=== PATIENT | female | born 1995 | race Caucasian/White ===

== ENCOUNTER → 2022-12-21 13:33 | Outpatient (CLI) | payer MEDICAID, SELFPAY ==
[2022-12-21 15:40] LABS: HCG,Quantitative 11184 mIU/ml (0-5.42)
== END ==
PROVIDERS: PCP Emergency Medicine; Visit Provider Obstetrics & Gynecology
DX: N92.6 Irregular menstruation, unspecified (principal); Z32.00 Encounter for pregnancy test, result unknown
CPT/HCPCS: 36415; 84144; 84702

== ENCOUNTER → 2023-01-10 11:46 | Outpatient (CLI) | payer MEDICAID, SELFPAY ==
[2023-01-10 12:24] LABS: Basophils # 0.1 K/mm3 (0-0.2); Basophils % 0.8 % (0.1-2.0); Eosinophils # 0.4 K/mm3 (0.0-0.4); Eosinophils % 3.5 % (0.1-12.0); Hematocrit 40.6 % (37.0-47.0); Hemoglobin 13.9 g/dL (12.2-16.2); Lymphocytes # 2.3 K/mm3 (0.7-4.5); Lymphocytes % 20.1 % (10-50); Mean Corpuscular HGB Conc 34.2 g/dL (31.8-35.4); Mean Corpuscular Hemoglobin 32.4 pg (27.0-31.2); Mean Corpuscular Volume 94.7 fl (81-99); Mean Platelet Volume 8.3 fl (7.4-10.4); Monocytes # 0.6 K/mm3 (0.1-1.0); Monocytes % 5.3 % (1.7-9.3); Neutrophils % 70.3 % (37.0-80.0); Platelet Count 341 K/mm3 (142-424); Red Blood Count 4.28 M/mm3 (4.20-5.40); Red Cell Distribution Width 12.8 % (11.5-17.5); White Blood Count 11.4 K/mm3 (4.8-10.8)
[2023-01-11 09:01] LABS: Progesterone 10.8 ng/mL (.); Rubella Antibodies, IgG 1.64 index (Immune >0.99)
[2023-01-11 15:29] LABS: Rapid Plasma Reagin Ab Titer Non Reactive (NonRea<1:1)
[2023-01-15 02:22] LABS: HIV Screen 4th Generation wRfx Non Reactive; Hepatitis B Surface Antigen Negative; Hepatitis C Antibody Non Reactive
== END ==
PROVIDERS: PCP Emergency Medicine; Visit Provider Obstetrics & Gynecology
DX: Z34.90 Encounter for supervision of normal pregnancy, unspecified, unspecified trimester (principal)
CPT/HCPCS: 36415; 84144; 85025; 86593; 86703; 86762; 86850; 87086; 87340; 87380; G0432

== ENCOUNTER → 2023-06-08 13:51 | Outpatient (CLI) | payer MEDICAID, SELFPAY ==
--- NOTE | 2023-06-08 13:54 | US_ITS ---
PROCEDURE: US OB FOLLOW UP CLINICAL INDICATION: sga/ with TIANA COMPARISON: No exams were available for comparison FINDINGS: Transabdominal sonographic images of the uterus were obtained. The following parameters are obtained: From her last established due date she is 29weeks 6days Viable fetus in the cephalic presentation with a posterior placenta grade 1. heart rate: 149bpm bpm. BPD: 30weeks 4days OFD: 30weeks 1day HC: 30weeks 2days AC: 29weeks 3days FL: 30weeks 3days HC/AC: 1.1 Cephalic index: 0.77 FL/BPD: 0.77 FL/AC: 0.23 36 percentile Amniotic fluid index: 12.27cm No obvious anomalies evident. profile seen, nasion, stomach, bladder, kidneys, appear normal. Nose and lips appear normal. Three-vessel cord seen. IMPRESSION: 1. Viable fetus in the cephalic presentation with a posterior placenta grade 1. 2. The fluid is within normal limits with an amniotic fluid index of 12.3 cm. 3. There has been good interval growth and the fetus is 36 percentile. Dictated by: Marcelo Trejo MD 06/09/2023 08:46 Marcelo Trejo MD in OV 06/09/2023 08:46
== END ==
PROVIDERS: PCP Emergency Medicine; Visit Provider Obstetrics & Gynecology
DX: O28.8 Other abnormal findings on antenatal screening of mother (principal); O36.5920 Maternal care for other known or suspected poor fetal growth, second trimester, not applicable or unspecified; Z3A.29 29 weeks gestation of pregnancy
CPT/HCPCS: 76816

== ENCOUNTER → 2023-06-09 07:32 | Outpatient (CLI) | payer MEDICAID, SELFPAY ==
[2023-06-09 07:47] LABS: Basophils # 0.1 K/mm3 (0-0.2); Basophils % 0.3 % (0.1-2.0); Eosinophils # 0.6 K/mm3 (0.0-0.4); Eosinophils % 2.9 % (0.1-12.0); Hematocrit 37.8 % (37.0-47.0); Hemoglobin 12.3 g/dL (12.2-16.2); Lymphocytes # 3.9 K/mm3 (0.7-4.5); Lymphocytes % 19.9 % (10-50); Mean Corpuscular HGB Conc 32.4 g/dL (31.8-35.4); Mean Corpuscular Hemoglobin 32.6 pg (27.0-31.2); Mean Corpuscular Volume 100.5 fl (81-99); Mean Platelet Volume 7.7 fl (7.4-10.4); Monocytes % 4.9 % (1.7-9.3); Neutrophils # 14.1 K/mm3 (1.8-7.8); Neutrophils % 71.9 % (37.0-80.0); Platelet Count 295 K/mm3 (142-424); Red Blood Count 3.76 M/mm3 (4.20-5.40); Red Cell Distribution Width 13.5 % (11.5-17.5); White Blood Count 19.5 K/mm3 (4.8-10.8)
[2023-06-09 07:50] LABS: MANUAL DIFFERENTIAL MANUAL DIFFERENTIAL (MANUAL DIFF)
[2023-06-09 08:08] LABS: Glucose,Fasting 84 mg/dl (74-100)
[2023-06-09 08:13] LABS: Lymphocytes % 19 % (10-50); Monocytes % 5 % (2-9); Neutrophils % 76 % (42-76); Platelet Estimate Normal; RBC Morphology Normal; Total Cells Counted 100
[2023-06-09 09:13] LABS: Glucose 1 Hour 134 mg/dL (74-100)
== END ==
PROVIDERS: Obstetrics & Gynecology; PCP Emergency Medicine; Visit Provider Obstetrics & Gynecology
DX: Z34.93 Encounter for supervision of normal pregnancy, unspecified, third trimester (principal); Z3A.29 29 weeks gestation of pregnancy
CPT/HCPCS: 36415; 82951; 85007; 85025

== ENCOUNTER → 2023-07-22 16:36 | Outpatient (CLI) | payer MEDICAID, SELFPAY | PROVIDERS: Visit Provider Obstetrics & Gynecology | DX: Z34.93 Encounter for supervision of normal pregnancy, unspecified, third trimester (principal); Z3A.36 36 weeks gestation of pregnancy | CPT/HCPCS: 86403 ==

== ENCOUNTER 2023-08-11 04:57 | Inpatient (IN) | payer MEDICAID, SELFPAY ==
[2023-08-11] VITALS (13 sets, daily range): BP systolic 114–142; BP diastolic 58–81; PULSE 71–117; RESP 16–24; TEMP 36.3–37.1; O2SAT 96–100; BMI 40.9
[2023-08-11 06:02] LABS: Microscopic, Urine URINE MICROSCOPIC (MICROSCOPIC)
[2023-08-11 06:07] LABS: Appearance,Urine CLEAR (Clear); Bilirubin,Urine Negative (Negative); Blood, Urine Negative (Negative); Color,Urine YELLOW (Yellow); Glucose,Urine (UA) Negative (Negative); Ketones,Urine Negative (Negative); Leukocyte Esterase,Urine 2+ (Negative); Nitrate,Urine Negative (Negative); PH,Urine 6.5 (5.0-8.5); Protein,Urine Negative (Negative); Urobilinogen,Urine 0.2 EU/dl (0.2)
[2023-08-11 06:11] LABS: Basophils # 0.1 K/mm3 (0-0.2); Red Cell Distribution Width 13.7 % (11.5-17.5)
[2023-08-11 06:17] LABS: Basophils % 0.4 % (0.1-2.0); Eosinophils # 0.6 K/mm3 (0.0-0.4); Eosinophils % 2.7 % (0.1-12.0); Hematocrit 37.8 % (37.0-47.0); Hemoglobin 12.2 g/dL (12.2-16.2); Lymphocytes # 4.1 K/mm3 (0.7-4.5); Lymphocytes % 18.6 % (10-50); Mean Corpuscular HGB Conc 32.4 g/dL (31.8-35.4); Mean Corpuscular Hemoglobin 33.2 pg (27.0-31.2); Mean Corpuscular Volume 102.8 fl (81-99); Mean Platelet Volume 8.8 fl (7.4-10.4); Monocytes # 1.3 K/mm3 (0.1-1.0); Monocytes % 5.8 % (1.7-9.3); Neutrophils # 15.8 K/mm3 (1.8-7.8); Neutrophils % 72.4 % (37.0-80.0); Platelet Count 391 K/mm3 (142-424); Red Blood Count 3.68 M/mm3 (4.20-5.40)
[2023-08-11 06:23] LABS: Barbiturates Screen,Urine Negative ng/ml (<200); Squamous Epithelial Cell,Urine TNTC #/hpf (0-5); Yeast,Urine 1+ /lpf
[2023-08-11 06:24] LABS: Chloride 108 mmol/L (98-107); Potassium 4.1 mmoL/L (3.5-5.1); Sodium 136 mmol/L (136-145)
[2023-08-11 06:24] LABS: Amphetamine/Metha Screen,Urine Negative ng/ml (<1000); Benzodiazepines Screen,Urine Negative ng/ml (<200)
[2023-08-11 06:25] LABS: Cocaine Screen,Urine Negative ng/ml (<300)
[2023-08-11 06:26] LABS: Blood Urea Nitrogen 7 mg/dl (7-17); Creatinine Clearance Estimated 298 mL/min (50-200); Estimated Glomerular Filt Rate 148 ml/min (>60); GFR (African American) 179 ML/MIN (>60)
[2023-08-11 06:26] LABS: Cannabinoid Screen,Urine Negative ng/ml (<50); Methadone Screen,Urine Negative ng/ml (<300)
[2023-08-11 06:27] LABS: Alanine Aminotransferase 28 U/L (12-78); Albumin Level 3.6 g/dl (3.5-5.0); Albumin/Globulin Ratio 1.1 (1.1-1.8); Alkaline Phosphatase 107 U/L (38-126); Anion Gap 14.1 mEq/L (5-15); Aspartate Amino Transferase 29 U/L (14-36); Calcium 9.1 mg/dl (8.4-10.2); Carbon Dioxide 18 mmol/L (22.0-30.0); Globulin 3.2 g/dL (1.3-3.2); Glucose 92 mg/dl (74-100); Total Protein,Serum 6.8 g/dl (6.3-8.2)
[2023-08-11 06:27] LABS: Opiate Screen,Urine Negative ng/ml (<300)
[2023-08-11 06:28] LABS: Phencyclidine Screen,Urine Negative ng/ml (<25)
[2023-08-11 06:28] LABS: MANUAL DIFFERENTIAL MANUAL DIFFERENTIAL (MANUAL DIFF)
[2023-08-11 06:30] LABS: White Blood Count 21.7 K/mm3 (4.8-10.8)
[2023-08-11 06:40] LABS: Bilirubin,Total < 0.1 mg/dl (0.2-1.3)
--- NOTE | 2023-08-11 07:14 | EXP.OB.APHP ---
OB - H&P: HPI Antepartum History of Present Illness Chief complaint: Scheduled repeat History of present illness: Ms Bee Moser is a 28 yo at 39w0d who presents to [facility] for scheduled repeat . History of x 1. She has history of Anti-phospholipid antibody syndrome and Factor V Leiden. She has been using Lovenox 40 mg daily. Her last dose was 08/09/23. She has had good care. History of Present Criteria for establishing EDC:: LMP confirmed by 1st trimester US care: good care Ultrasounds: normal mid trimester US Obstetrical complications: previous Medical complications: other (Anti-phospholipid antibody syndrome, Factor V Leiden) Labs Blood type: A (+) positive Rubella: immune RPR/VDRL: nonreactive HBsAG: negative PFSH [facility] Disclaimer: The information contained in this section may have been updated after the patient was seen, as this information can be updated by other users. Medical History (Updated 08/11/23 @ 07:28 by Lucinda Sebastian DO) 39 weeks gestation of Anti-phospholipid syndrome Factor V deficiency History of hemorrhage, currently Surgical History History of delivery Family History Other No significant family history Social History Smoking Status: Current every day smoker alcohol intake: never current occupational status: employed Travel in the last 8 weeks: None Review of Systems Review of Systems Review of systems:: pertinent systems reviewed and negative unless documented below Meds Home Medications and Allergies Home Medications Medication Instructions Recorded Confirmed Type aspirin 81 mg tablet,delayed 81 mg PO DAILY #30 tabs 01/10/23 08/05/23 Rx release enoxaparin 40 mg/0.4 mL 40 mg (0.4 mL) SQ DAILY #12 mL 01/10/23 08/05/23 Rx subcutaneous syringe (Lovenox) prenat.vits,nichole,nkn-cero-hrjyj 1 tab PO DAILY 01/10/23 08/05/23 History New Prescriptions to Start Prescriptions: Allergies Allergy/AdvReac Type Severity Reaction Status Date / Time No Known Allergies Allergy Verified 08/05/23 09:23 OB - H&P: Exam Physical Exam Vital signs: Temp Pulse Resp BP Pulse Ox O2 Del Method 98.8 F 117 H 20 142/81 H 97 Room Air 08/11/23 06:06 08/11/23 06:06 08/11/23 06:06 08/11/23 06:06 08/11/23 06:06 08/11/23 06:06 Constitutional no acute distress and cooperative Routine HEENT Exam Head: Present normocephalic and atraumatic Eye: Absent conjunctivae pink ENT: Present mucous membranes moist and dentition normal Routine Neck Exam Present full ROM Routine Respiratory Exam Present CTA bilaterally and normal respiratory effort Routine Cardiovascular Exam Present RRR Routine Abdominal Exam Present soft (Gravid); Absent tenderness Routine Rectal Exam Patient deferred: visual exam Routine Exam Patient deferred: external exam Routine Extremities Exam Present full ROM; Absent edema or calf tenderness Routine Neurological Exam Present alert, oriented X3 and moving all extremities Routine Psychiatric Exam Present normal affect and cooperative OB - Results Labs Labs: Short CBC 08/11/23 Range/Units 05:30 WBC 21.7 H* (4.8-10.8) K/mm3 Hgb 12.2 (12.2-16.2) g/dL Hct 37.8 (37.0-47.0) % Plt Count 391 (142-424) K/mm3 BMP 08/11/23 05:30 Sodium 136 Potassium 4.1 Chloride 108 H Carbon Dioxide 18 L BUN 7 Creatinine 0.50 L Glucose 92 Calcium 9.1 Liver Function 08/11/23 Range/Units 05:30 Total Bilirubin < 0.1 L (0.2-1.3) mg/dl AST 29 (14-36) U/L ALT 28 (12-78) U/L Alkaline Phosphatase 107 (38-126) U/L Albumin 3.6 (3.5-5.0) g/dl Urine 08/11/23 Range/Units 05:09 Urine Color Yellow (Yellow) Urine Appearance
[2023-08-11 07:46] LABS: Lymphocytes % 22 % (10-50); Monocytes % 8 % (2-9); Neutrophils % 70 % (42-76); Platelet Estimate Normal; RBC Morphology Normal; Total Cells Counted 100
--- NOTE | 2023-08-11 08:32 | P.CONPHA_ITS ---
Pharmacy Intervention Comments: MEDICATION RECONCILIATION COMPLETED ON PATIENT USING EXTERNAL FILL HISTORY FROM PHARMACY AND LIST FROM [facility]. -CHAKA GOMEZD
--- NOTE | 2023-08-11 09:02 | EXP.OP.NOTE ---
Date of procedure: 08/11/23 Pre-op Diagnosis:: 1. IUP at 39w0d 2. History of x 1 3. Tobacco use 4. Maternal obesity 5. Factor V Leiden 6. Antiphospholipid antibody syndrome Post-op Diagnosis:: 1. IUP at 39w0d 2. History of x 1 3. Tobacco use 4. Maternal obesity 5. Factor V Leiden 6. Antiphospholipid antibody syndrome Procedure performed:: Repeat Low Transverse Section Surgeon:: Lucinda Sebastian DO Size Changer(s):: Dayami Garcia DO DNA ANALYST:: Other (Saldaris, DNA ANALYST) Anesthesia: spinal Estimated blood loss (mL): 500 Clinical Note:: Ms Bee Moser is a 28 yo at 39w0d who presents to [facility] for scheduled repeat . History of x 1. She has history of Anti-phospholipid antibody syndrome and Factor V Leiden. She has been using Lovenox 40 mg daily. Her last dose was 08/09/23. She has had good care. Operative findings:: 1. Live female baby weighing 8 lb 8 oz, APGARs 9, 9 2. Normal appearing uterus, bilateral fallopian tubes and ovaries Operative note:: The risks, benefits and alternatives of the procedure were reviewed with the patient. Informed consent was obtained. Patient was taken to the operating room where spinal anesthesia was placed. The patient received 2 grams of Ancef preoperatively. Patient was placed in dorsal supine position with a leftward tilt. SCDs in place. Marquez catheter had been placed and was draining clear urine prior to the start of the procedure. heart tones were obtained. Patient was then prepped and draped in normal sterile fashion. Allis clamp test was performed to ensure adequate anesthesia. A Pfannenstiel skin incision was made 2 cm above pubic symphysis, above prior Pfannenstiel scar. This was carried through to underlying layer of fascia. Fascia was incised in midline, extended laterally with Carrizales scissors. Superior aspect of fascial incision was grasped with two Zev clamps, elevated up, and rectus muscle dissected off bluntly and sharply with Carrizales scissors. Inferior aspect of fascial incision was grasped with two Zev clamps, elevated up, and rectus muscle dissected off bluntly and sharply with Carrizales scissors.The retcus muscle was then in the midline and the peritoneum was entered bluntly with a digit. Peritoneal incision was then extended superiorly and inferiorly with good visualization of the bladder. Lucius retractor was inserted. The lower uterine segment was incised in a transverse fashion. Clear amniotic fluid was noted. Head was delivered without difficulty. Remainder of body was delivered without difficulty. Mouth and nares were bulb suctioned. Spontaneous cry was noted. Delayed cord clamping was performed for 60 seconds. The umbilical cord was clamped and cut. The infant was handed to awaiting pediatric staff in stable condition. Dr. Edward was present. Apgars were 9(1 min), 9(5 min). Cord blood was obtained. Gentle traction on the umbilical cord and uterine fundal massage delivered the placenta. Placenta was intact. Placental calcifications notd. Placenta will be sent to pathology for review. Uterus was cleared of all clots and debris with a moist laparotomy sponge. Corners of the uterine incision were grasped with Allis clamps. The uterine incision was reapproximated with # 1 Vicryl suture in a running, locked stitch. Second layer of the same stitch was used to imbricate the incision. Vesicouterine peritoneum was reapproximated in a running locked stitch with 0-Vicryl suture. Hemostasis was noted. Posterior cul-de-sac was cleaned with moist laparotomy sponge. Gutters cleared of all clots and debris with a moist laparotomy sponge. Reinspection of the lower uterine segment demonstrated small amount of oozing. Puma was applied over uterine incision. Hemostasis was noted. At this point all instruments and sponges were removed from the pelvis.? The peritoneum was grasped with Sherrell clamps x 3. The peritoneum was reapproximated with 0 Vicryl
--- NOTE | 2023-08-11 10:08 | EXP.ANES.CKL ---
[facility] Disclaimer: The information contained in this section may have been updated after the patient was seen, as this information can be updated by other users. Medical History (Updated 08/11/23 @ 07:28 by Lucinda Sebastian DO) 39 weeks gestation of Anti-phospholipid syndrome Factor V deficiency History of hemorrhage, currently Surgical History History of delivery Family History Other No significant family history Social History Smoking Status: Current every day smoker alcohol intake: never substance use type: denies use and other current occupational status: employed Travel in the last 8 weeks: None [facility] Anesthesia Checklist Patient Identification Patient Identification: Arm Band, Family and Verbal (Name & ) Structural Data Admitted From: Inpatient Planned Operative Procedure/s: Repeat C-sxn Consent for Planned Operative Procedure(s) Verified: Yes Verified Documents: Surgical Consent and History and Physical NPO Status Verified Time NPO: 00:00 Chart Verification Results Verified: CBC Additional verifications Patient : Yes Anesthesia Reactions: No Hx Blood Transfusions: Yes Blood Transfusion Reaction: No Cephalosporin Allergy: No Cardiovascular Assessment Heart Sounds: S1 & S2 Pulse Rhythm: Irregular Peripheral Edema: Yes Airway Assessment Mallampati Score:: Class II C-Spine Mobility Assessed: Yes TMJ Mobility Assessed: Yes Dentition: Good Dentition Neurological Assessment Level of Consciousness: Awake, Alert and Appropriate Hx Seizures: No Numbness or tingling in extremities: No Anesthesia Plan Anesthesia Risk discussed: Yes Anesthesia Plan: Verified ASA Class: II Anesthesia Type: Spinal
--- NOTE | 2023-08-11 10:11 | P.PNANES_ITS ---
[facility] Anesthesia Record Part I Anesthesia Record I Intake, IV Amount: 1,300 Hydration: Adequate Estimated blood loss (mL): 550 Urine output (mL): 300 Blood Products used (#): none Blood Pressure: 120/74 SaO2: 98 Pulse Rate: 80 Airway Patency: Patent Respiratory Rate: 24 Temperature: 97.3 F Patient is:: Awake Stable to PACU at:: 09:08
--- NOTE | 2023-08-11 13:02 | SUR.OPER ---
0757- Time of of viable infant.
--- NOTE | 2023-08-11 13:21 | P.PNANES_ITS ---
[facility] Anesthesia Record Part II Anesthesia Record Part II Discharge Time: 09:33 Destination: Obstetric PACU nurse assessment reviewed?: Yes Patient Condition:: Good Anesthesia Complications:: None Swallowing reflex intact?: Yes Airway Patency: Patent Cyanosis?: No Blood Pressure: 128/65 SaO2: 98 Respiratory Rate: 18 Pulse Rate: 71 Temperature: 97.3 F Mental Status: Alert & Oriented Pain level:: 0 Nausea and/or vomitting:: None Intake, IV Amount: 0 Hydration: Adequate
[2023-08-11 13:49] LABS: Microscopic,Cath URINE MICROSCOPIC (MICROSCOPIC)
[2023-08-11 14:17] LABS: Appearance,Urine/Cath CLEAR (Clear); Bilirubin,Cath Negative (Negative); Blood, Urine/Cath Negative (Negative); Color,Urine/Cath YELLOW (Yellow); Glucose,Urine/Cath (UA) Negative (Negative); Ketones,Urine/Cath Negative (Negative); Leukocyte Esterase,Cath Negative (Negative); Nitrate,Cath Negative (Negative); Protein,Urine/Cath Negative (Negative); Specific Gravity, Urine/Cath 1.015 (1.005-1.030); Urobilinogen,Cath 0.2 EU/dl (0.2)
[2023-08-11 16:49] LABS: Squamous Epithelial Ur./Cath Occasional #/hpf (0-5)
[2023-08-12 06:03] LABS: Basophils # 0.1 K/mm3 (0-0.2); Basophils % 0.3 % (0.1-2.0); Eosinophils # 0.5 K/mm3 (0.0-0.4); Eosinophils % 2.2 % (0.1-12.0); Hematocrit 34.9 % (37.0-47.0); Hemoglobin 11.5 g/dL (12.2-16.2); Lymphocytes # 2.5 K/mm3 (0.7-4.5); Lymphocytes % 10.8 % (10-50); Mean Corpuscular HGB Conc 32.9 g/dL (31.8-35.4); Mean Corpuscular Hemoglobin 33.5 pg (27.0-31.2); Mean Corpuscular Volume 101.8 fl (81-99); Mean Platelet Volume 9.1 fl (7.4-10.4); Monocytes # 1.5 K/mm3 (0.1-1.0); Monocytes % 6.4 % (1.7-9.3); Neutrophils # 18.8 K/mm3 (1.8-7.8); Neutrophils % 80.3 % (37.0-80.0); Platelet Count 320 K/mm3 (142-424); Red Blood Count 3.43 M/mm3 (4.20-5.40); Red Cell Distribution Width 13.6 % (11.5-17.5); White Blood Count 23.4 K/mm3 (4.8-10.8)
[2023-08-12 06:07] LABS: MANUAL DIFFERENTIAL MANUAL DIFFERENTIAL (MANUAL DIFF)
[2023-08-12 07:45] VITALS: BP 140/95; PULSE 105; RESP 18; TEMP 37; O2SAT 97
[2023-08-12 07:55] LABS: Eosinophils % 1 % (0-3); Lymphocytes % 9 % (10-50); Monocytes % 8 % (2-9); Neutrophils % 82 % (42-76); Total Cells Counted 100
[2023-08-12 07:56] LABS: Macrocytosis 1+; Platelet Estimate Normal
[2023-08-12 11:35] VITALS: BP 123/79; PULSE 95; RESP 16; TEMP 37.1; O2SAT 97
--- NOTE | 2023-08-12 14:46 | EXP.DC.SUM ---
General Admission date:: 08/11/23 Discharge date: 08/12/23 HPI HPI HPI: POD # 1 s /p RLTCS Feeling well. Pain controlled. Breast feeding. Lochia is appropriate. Voiding without difficulty and passing flatus. Tolerating regular diet. Denies fever/chills, chest pain and shortness of breath. No headaches, vision changes, lightheadedness/dizziness. Ambulating well ad traci. Hospital Course Hospital Course Hospital Course: Ms Bee Moser is a 28 yo at 39w0d who presents to [facility] for scheduled repeat . History of x 1. She has history of Anti-phospholipid antibody syndrome and Factor V Leiden. She has been using Lovenox 40 mg daily. Her last dose was 08/09/23. She has had good care. She underwent repeat 08/11/23. She delivered a live female baby, Ember, weighing 8 lb 8 oz. APGARs 9, 9. EBL 500 mL. She did well postoperatively. Pain controlled. Breast feeding. Lochia is appropriate. Voiding without difficulty and passing flatus. Tolerating regular diet. Vital signs stable, afebrile. Heart regular rate and rhythm. Lungs clear to auscultation. Abdomen soft, nontender. Trace lower extremity edema. No calf tenderness to palpation. Normal hospital course. She was discharged home on POD # 1 feeling well with instructions to follow-up in the office in 2 weeks. Exam Data for Last 24 hours Vital signs and Labs for Last 24 Hours: Temp Pulse Resp BP Pulse Ox O2 Del Method 98.8 F 95 H 16 123/79 97 Room Air 08/12/23 11:35 08/12/23 11:35 08/12/23 11:35 08/12/23 11:35 08/12/23 11:35 08/12/23 11:35 Laboratory Results - last 24 hr 08/11/23 07:38: Urine RBC None, Urine WBC None, Ur Squamous Epith Cells Occasional, Urine Bacteria None 08/12/23 05:30: WBC 23.4 H*, RBC 3.43 L, Hgb 11.5 L, Hct 34.9 L, MCV 101.8 H, MCH 33.5 H, MCHC 32.9, RDW 13.6, Plt Count 320, MPV 9.1, Neut % (Auto) 80.3 H, Lymph % (Auto) 10.8, Norton % (Auto) 6.4, Eos % (Auto) 2.2, Baso % (Auto) 0.3, Neut # (Auto) 18.8 H, Lymph # (Auto) 2.5, Norton # (Auto) 1.5 H, Eos # (Auto) 0.5 H, Baso # (Auto) 0.1, Total Counted 100, Neutrophils % (Manual) 82 H, Lymphocytes % (Manual) 9 L, Monocytes % (Manual) 8, Eosinophils % (Manual) 1, Platelet Estimate Normal, Macrocytosis 1+ I & O for Last 24 hours: Intake & Output 08/09/23 08/10/23 08/11/23 08/12/23 23:59 23:59 23:59 23:59 Intake Total 1300 / 1300 Balance 1300 / 1300 Weight 246 lb Constitutional Constitutional: no acute distress and cooperative *Routine HEENT Exam Head: Present normocephalic and atraumatic Eye: Absent conjunctivae pink ENT: Present mucous membranes moist *Routine Neck Exam Neck: Present full ROM *Routine Respiratory Exam Respiratory: Present CTA bilaterally and normal respiratory effort *Routine Cardiovascular Exam Cardiovascular: Present RRR *Routine Abdominal Exam Abdominal: Present soft and normoactive bowel sounds; Absent tenderness or distended Comments: Uterine fundus firm and below umbilicus; pfannenstiel incision clean/dry/intact with steri strips *Routine Rectal Exam Patient deferred: visual exam *Routine Exam Patient deferred: external exam *Routine Extremities Exam Extremities: Present edema (trace lower extremity edema) and full ROM; Absent calf tenderness *Routine Neurological Exam Neurological: Present alert, oriented X3 and moving all extremities Routine Psychiatric Exam Psychiatric: Present normal affect and cooperative Results Data Completed and Pending Labs on day of discharge: Labs from last 24 hours 08/12/23 08/11/23 05:30 07:38 WBC 23.4 H* RBC 3.43 L Hgb 11.5 L Hct 34.9 L MCV 101.8 H MCH 33.5 H MCHC 32.9 RDW 13.6 Plt Count 320 MPV 9.1 Neut % (Auto) 80.3 H Lymph % (Auto) 10.8 Norton % (Auto) 6.4 Eos % (Auto) 2.2 Baso % (Auto) 0.3 Neut # (Auto) 18.8 H Lymph # (Auto) 2.5 Norton # (Auto) 1.5 H Eos # (Auto) 0.5 H Baso # (Auto) 0.1 Total Counted 100 Neutrophils %
== END 2023-08-12 16:50 | disposition home or self-care (01) | DRG 787 ==
PROVIDERS: Admitting Provider Obstetrics & Gynecology; PCP Obstetrics & Gynecology; Visit Provider Obstetrics & Gynecology
PROC: 10D00Z1 Extraction of Products of Conception, Low, Open Approach (ICD-10-PCS; CPT 59514; principal; 2023-08-11 07:30)
DX: O34.211 Maternal care for low transverse scar from previous cesarean delivery (principal); D68.61 Antiphospholipid syndrome; O99.12 Other diseases of the blood and blood-forming organs and certain disorders involving the immune mechanism complicating childbirth; N85.8 Other specified noninflammatory disorders of uterus; Z37.0 Single live birth; Z3A.39 39 weeks gestation of pregnancy; O99.334 Smoking (tobacco) complicating childbirth; O99.214 Obesity complicating childbirth
CPT/HCPCS: 59514; 36415; 59025; 80053; 80305; 81001; 85007; 85025; 86850; 87086; 88307; 96374; C9290; J2405

== ENCOUNTER 2025-03-02 15:03 | Emergency (ER) | payer SELFPAY ==
[2025-03-02 15:11] VITALS: BP 119/73; PULSE 122; RESP 21; TEMP 36.8; O2SAT 100; BMI 33.3
--- NOTE | 2025-03-02 15:16 | ECG_ITS ---
APPROVED REPORT Exam: Resting ECG HR:103 bpm ECG Measurements Heart Rate 103 AXES OR 151 P 56 QRSd 92 QRS 64 QT 318 T -47 QTc [address]ressions and T wave inversions in anterior, lateral and inferior leads No reciprocal change Electronically signed by : HARRIET BAZAN, 03/02/2025 21:26:00
--- NOTE | 2025-03-02 15:21 | PC.NURSE ---
DR BAZAN AT BEDSIDE
[2025-03-02 15:30] VITALS: BP 111/70; PULSE 96; O2SAT 96
[2025-03-02 15:47] LABS: Appearance,Urine CLEAR (Clear); Bilirubin,Urine Negative (Negative); Blood, Urine TRACE-I (Negative); Color,Urine YELLOW (Yellow); Glucose,Urine (UA) Negative (Negative); Ketones,Urine Negative (Negative); Leukocyte Esterase,Urine Negative (Negative); Microscopic, Urine URINE MICROSCOPIC (MICROSCOPIC); Nitrate,Urine Negative (Negative); PH,Urine 6.5 (5.0-8.5); Protein,Urine Negative (Negative); Urobilinogen,Urine 0.2 EU/dl (0.2)
[2025-03-02 15:50] LABS: Lactate Venous 1.2 mmol/L (0.4-2.0); VBG Base Excess -3.3 mmol/L (-2.4-2.3); VBG HCO3 22.1 mmol/L (23-30); VBG Oxygen Saturation 65.3 % (50-70); VBG PCO2 39.4 mmol/L (35-51); VBG PH 7.37 mmol/L (7.31-7.41); VBG Total CO2 23.3 mmol/L (23-27)
[2025-03-02 15:50] LABS: Basophils % 0.3 % (0.1-2.0); Eosinophils # 0.8 Kmm3 (0.0-0.4); Eosinophils % 21.9 % (0.1-12.0); Hematocrit 39.1 % (37.0-47.0); Hemoglobin 13.8 g/dL (12.2-16.2); Lymphocytes # 1.2 K/mm3 (0.7-4.5); Lymphocytes % 35.6 % (10-50); Mean Corpuscular HGB Conc 35.3 g/dL (31.8-35.4); Mean Corpuscular Hemoglobin 32.6 pg (27.0-31.2); Mean Corpuscular Volume 92.4 fl (81-99); Mean Platelet Volume 9.2 fl (7.4-10.4); Monocytes # 0.3 K/mm3 (0.1-1.0); Monocytes % 8.5 % (1.7-9.3); Neutrophils # 1.1 K/mm3 (1.8-7.8); Neutrophils % 33.1 % (37.0-80.0); Nucleated Red Blood Cells # 0 10^3/uL; Nucleated Red Blood Cells % 0 %; Platelet Count 156 K/mm3 (142-424); Red Blood Count 4.23 M/mm3 (4.20-5.40); Red Cell Distribution Width-SD 41.1 fL; White Blood Count 3.4 K/mm3 (4.8-10.8)
[2025-03-02 15:52] LABS: Chloride 105 mmol/L (98-107); Potassium 3.9 mmoL/L (3.5-5.1); Sodium 138 mmol/L (136-145)
[2025-03-02] MEDS: DEXAMETHASONE 4MG/ML 1ML VIAL 10 MG IV (15:54)
[2025-03-02] MEDS: FAMOTIDINE 20MG/2ML VIAL 20 MG IV (15:54)
[2025-03-02 15:55] LABS: Alanine Aminotransferase 46 U/L (12-78); Albumin/Globulin Ratio 1.3 (1.1-1.8); Alkaline Phosphatase 81 U/L (38-126); Anion Gap 12.9 mEq/L (5-15); Aspartate Amino Transferase 52 U/L (14-36); Bilirubin,Total 0.4 mg/dl (0.2-1.3); Blood Urea Nitrogen 8 mg/dl (7-17); Calcium 8.6 mg/dl (8.4-10.2); Carbon Dioxide 24 mmol/L (22.0-30.0); Creatinine Clearance Estimated 109 mL/min (50-200); Estimated Glomerular Filt Rate 59 ml/min (>60); GFR (African American) 72 ML/MIN (>60); Globulin 3.1 g/dL (1.3-3.2); Glucose 99 mg/dl (74-100); Total Protein,Serum 7.1 g/dl (6.3-8.2)
[2025-03-02] MEDS: EPINEPHrine 1 MG/ML AMPUL 0.3 MG IM (15:55)
[2025-03-02] MEDS: diphenhydrAMINE 50MG/ML VIAL 50 MG IV (15:55)
--- NOTE | 2025-03-02 15:55 | HMH.EDGENADL ---
Discharge Plan Disposition Patient Disposition: Home, Self-Care Prescriptions Prescriptions: New cephalexin 500 mg capsule 1,000 mg PO BID 7 Days Qty: 28 0RF prednisone 20 mg tablet 40 mg PO DAILY 5 Days Qty: 10 0RF epinephrine [EpiPen 2-Hong] 0.3 mg/0.3 mL auto-injector 0.3 mg IM Q10M PRN (Reason: anaphylaxis) Qty: 2 0RF Rx Instructions: for 2 doses No Action enoxaparin [Lovenox] 40 mg/0.4 mL syringe 40 mg SQ DAILY Qty: 4 1RF PNV cmb#95-ferrous fumarate-FA [] 28 mg iron- 800 mcg Tablet 1 tab PO DAILY Referrals Follow up/Referrals: Provider,Referral, MD [Primary Care Provider] - See instructions Activity Restrictions/Add. Instructions Additional Instructions/Restrictions: Call your family doctor to establish care for this visit to the emergency department and schedule follow-up within 48 hours to ensure improvement. If you have any worsening of your condition or any other concerning signs or symptoms, return to the emergency department or your primary care doctor for further evaluation. Steroid each day for the next 5 days in the morning after waking up. Take with plenty of food and water. Do not take Bactrim, start taking Keflex. EpiPen sent to pharmacy. If you have swelling of your tongue or lips, difficulty breathing, whistling sound in your throat, wheezing, nausea or vomiting, sweating, diffuse rash/hives, lightheadedness, chest pain, shortness of breath, or any other concerns, return to the ER promptly for further evaluation. These are signs of anaphylaxis. Clinical Impressions Clinical Impression: Drug reaction with eosinophilia and systemic symptoms Instructions Patient Instructions: DI for Skin Abscess Print Language Print Language: Yi Discharge ED Provider: Alfa Hutchinson General Adult HPI General Chief complaint: Skin/Abscess/Foreign Body Stated complaint: redness,fever,rash all over Time Seen by Provider: 03/02/25 15:18 Mode of Arrival: Ambulatory Source of Information: Patient Description of Symptoms (Recalled from ER Triage Doc. by RN): pt presents to ED with c/o rash. pt states that she is having a possible reaction to bactrum abx. pt reports that she started taking the abx on tuesday for a skin graft. pt reports she began taking abx on tuesday and by tuesday she began feeling ill , fever. History of Present Illness HPI narrative: Please note that above description of symptoms, in this electronic medical record under categorization of recalled from ER triage doctor by RN are reflective of an initial nursing assessment, however, is not reflective of my full history and physical exam that was personally taken and clarified. Consequentially, this preceding description of symptoms, which may include the patient's categorized chief complaint in the EMR, do not reflect my personal clinical impression, and the ultimate description of history of present illness and patient stated complaints should be deferred to this section of the note. Unless stated otherwise or congruent with this section of the note, additional signs, symptoms, or incongruence should be interpreted as inaccurate with my clinical impression. Related Data Home Medications ?Medication ?Instructions ?Recorded ?Confirmed vit no.95-ferrous 1 tab PO DAILY Supplement 08/11/23 09/22/23 fumarate 28 mg-folic acid 800 mcg tablet () Previous Rx's ?Medication ?Instructions ?Recorded enoxaparin 40 mg/0.4 mL 40 mg (0.4 mL) SQ DAILY DVT 09/07/23 subcutaneous syringe (Lovenox) Prophylaxis #4 mL cephalexin 500 mg capsule 1,000 mg (2 x 500 mg) PO BID 7 03/02/25 days #28 caps epinephrine 0.3 mg/0.3 mL 0.3 mg (0.3 mL) IM Q10M PRN 03/02/25 injection, auto-injector (EpiPen anaphylaxis #2 ea 2-Hong) prednisone 20 mg tablet 40 mg (2 x 20 mg) PO DAILY 5 days 03/02/25 #10 tabs Allergies Allergy/AdvReac Type Severity Reaction Status Date / Time No Known Allergies Allergy Verified 09/22/23 10:18 [facility] Disclaimer: The information contained in this section may have been updated after the patient was seen, as this information can be updated by other users. Medical History Anti-phospholipid syndrome Factor V deficiency Surgical History History of delivery Family History Other Alcoholism Bleeding disorder Cancer Hyperlipidemia Hypertension Substance abuse Social History (Reviewed 09/22/23 @ 12:27 by DEYVI Man Smoking Status: Current every day smoker alcohol intake: never substance use type: denies use and other current occupational status: employed Travel in the last 8 weeks: None Have you lived/traveled outside [place] in past 30 days?: No Contact w/someone who lives/traveled outside [place] past 30 days?: No Exposure to someone with infectious disease in past 14 days?: No Do you have a fever (greater than 100.4 F or 38 C)?: No Have you tested positive for COVID-19: No Exposed to someone with COVID-19 in past 14 days?: No Do you have a sore throat?: No Do you have a cough?: No Do you have any weakness?: No Do you have any diarrhea?: No Are you experiencing any unusual bleeding?: No Do you have any muscle aches/pain?: No Do you have any abdominal pain?: No Are you experiencing loss of taste or smell?: No Other Medical History Have you received the Flu Vaccine for this season: No Have you received the Pneumonia Vaccine: No ROS Obtained: Yes All systems reviewed & no additional complaints except as documented Physical Exam General General appearance: alert and in no apparent distress Comment: Appears uncomfortable Head Head exam: atraumatic and normocephalic Eye Eye exam: Present normal appearance, PERRL, EOMI and periorbital swelling; Absent conjunctival redness or conjunctival injection ENT ENT exam: Present normal oropharynx, mucous membranes moist and other (Subjective pharyngitis); Absent mucous membranes dry Neck Neck exam: Present normal inspection, full ROM and trachea midline Chest Chest inspection: Present normal inspection and symmetric chest wall rise Respiratory Respiratory exam: Present normal lung sounds bilaterally; Absent respiratory distress, wheezes, stridor, accessory muscle use or prolonged expiratory phase Cardiovascular Cardiovascular exam: Present normal rhythm, tachycardia and other (Pulses equal symmetric in upper and lower extremities) Abdominal Exam Abdominal exam: Present soft; Absent distention, tenderness, guarding, rebound or pulsatile mass Extremities Exam Extremities exam: Absent edema Neurological Exam Neurological exam: Present alert, oriented X3 and CN II-XII intact; Absent motor sensory deficit Skin Skin exam: Present warm, dry, rash (Macular rash on the face, trunk, upper and lower extremities sparing palms and soles. Blanches. Negative for desquamation, palm or sole involvement, Nikolsky sign, mucous membrane involvement, ocular involvement, purpura, or other abnormalities.) and erythema (Diffuse erythema); Absent diaphoresis Medical Decision Making Medical Records Medical records reviewed: Yes I reviewed the patient's medical records. Screening: Per USPSTF and CDC recommendations, given the prevalence of disease in our region, it is our hospital?s policy to screen for HIV and viral Hepatitis for all patients aged 18 and over and those with ongoing risk factors. Rusty Inquiry Pt receiving controlled substance: No Rusty was queried for this patient: No Vital Signs: 03/02/25 15:11 03/02/25 15:30 03/02/25 16:00 Temperature 98.3 F Temperature Source Oral Pulse Rate 96 H 84 Pulse Rate [Left Radial] 122 H Respiratory Rate 21 23 Blood Pressure 111/70 106/61 L Blood Pressure [Right Arm] 119/73 Blood Pressure Mean 83 Blood Pressure Mean [Right Arm] 88 Blood Pressure Source [Right Arm] Automatic Cuff Blood Pressure Position [Right Arm] Supine 02 Sat by Pulse Oximetry 100 96 100 Oxygen Delivery Method Room Air Room Air 03/02/25 16:30 03/02/25 17:00 Temperature Temperature Source Pulse Rate 79 79 Pulse Rate [Left Radial] Respiratory Rate 21 18 Blood Pressure 92/64 L 105/59 L Blood Pressure [Right Arm] Blood Pressure Mean 73 69 Blood Pressure Mean [Right Arm] Blood Pressure Source [Right Arm] Blood Pressure Position [Right Arm] 02 Sat by Pulse Oximetry 100 100 Oxygen Delivery Method Lab Data Lab Results 03/02/25 15:40: WBC 3.4 L, RBC 4.23, Hgb 13.8, Hct 39.1, MCV 92.4, MCH 32.6 H, MCHC 35.3, RDW 12.0, Plt Count 156, MPV 9.2, Neut % (Auto) 33.1 L, Lymph % (Auto) 35.6, [place] % (Auto) 8.5, Eos % (Auto) 21.9 H, Baso % (Auto) 0.3, Neut # (Auto) 1.1 L, Lymph # (Auto) 1.2, [place] # (Auto) 0.3, Eos # (Auto) 0.8 H, Baso # (Auto) 0.0, APTT 30.8 H, Sodium 138, Potassium 3.9, Chloride 105, Carbon Dioxide 24, Anion Gap 12.9, BUN 8, Creatinine 1.10 H, Estimated Creat Clear 109, Estimated GFR 59, Est GFR ( Amer) 72, Glucose 99, Calcium 8.6, Total Bilirubin 0.4, AST 52 H, ALT 46, Alkaline Phosphatase 81, Troponin I < 0.01, Total Protein 7.1, Albumin 4.0, Globulin 3.1, Albumin/Globulin Ratio 1.3, HCG, Quant < 2, Urine Color Yellow, Urine Appearance Clear, Urine pH 6.5, Ur Specific [place] 1.020, Urine Protein Negative, Urine Glucose (UA) Negative, Urine Ketones Negative, Urine Blood Trace-i, Urine Nitrate Negative, Urine Bilirubin Negative, Urine Urobilinogen 0.2, Ur Leukocyte Esterase Negative, Urine RBC 5-10, Urine WBC 5-10, Ur Squamous Epith Cells 20-50, Urine Bacteria 4+, Urine Mucus 1+, HCV Ab BRITNEY w/Rflx PCR Qn Negative, HIV Ag/Ab Combo Qual Negative 03/02/25 15:49: VBG pH 7.37, VBG pCO2 39.4, VBG pO2 34.0, VBG HCO3 22.1 L, VBG Total CO2 23.3, VBG O2 Saturation 65.3, VBG Base Excess -3.3 L, VBG Lactic Acid 1.2 03/02/25 15:40 03/02/25 15:40 Orders (Tests/Meds): ED MEDICATIONS Generic Name Dose Route Start Last Admin Trade Name Stewart PRN Reason Stop Dose Admin Sodium Chloride 8 ml 03/02/25 15:30 Sodium Chloride 0.9% 10ml Vial IV 04/01/25 15:29 NEEDED PRN dilute pepcid Discontinued Medications Generic Name Dose Route Start Last Admin Trade Name Freq PRN Reason Stop Dose Admin Dexamethasone Sodium Phosphate 10 mg 03/02/25 15:30 03/02/25 15:54 Dexamethasone 4mg/Ml 1ml Vial IV 03/02/25 15:31 10 mg ONCE ONE Administration Diphenhydramine HCl 50 mg 03/02/25 15:30 03/02/25 15:55 Diphenhydramine 50mg/Ml Vial IV 03/02/25 15:31 50 mg ONCE ONE Administration Epinephrine HCl 0.3 mg 03/02/25 15:30 03/02/25 15:55 Epinephrine 1 Mg/Ml Ampul IM 03/02/25 15:31 0.3 mg ONCE ONE Administration Famotidine 20 mg 03/02/25 15:30 03/02/25 15:54 Famotidine 20mg/2ml Vial IV 03/02/25 15:31 20 mg ONCE ONE Administration Lactated Ringer's 1,000 mls @ 999 mls/hr 03/02/25 15:38 03/02/25 16:01 Lactated Ringer's 1000 Ml Bag IV 03/02/25 16:38 999 mls/hr .Q1H1M ONE Administration ORDERS Category Date Time Status Complete Blood Count Auto Diff Stat Lab 03/02/25 15:40 Completed Comprehensive Metabolic Panel Stat Lab 03/02/25 15:40 Completed HCG,Quantitative Stat Lab 03/02/25 15:40 Completed HIV Combo Stat Lab 03/02/25 15:40 Completed Hepatitis C Ab Qual. W/ RFX Stat Lab 03/02/25 15:40 Completed PTT [Activated Partial Thrombo Time] Stat Lab 03/02/25 15:40 Completed Troponin I Q3H Lab 03/02/25 18:45 Ordered Troponin I Q3H Lab 03/02/25 21:45 Ordered Troponin I Stat Lab 03/02/25 15:40 Completed Urinalysis and Microscopic Stat Lab 03/02/25 15:40 Completed Urine Culture Stat Micro 03/02/25 15:40 Received VBG [Venous Blood Gas] Stat RT 03/02/25 15:49 Completed Medical Decision Narrative: 29-year-old female presenting with rash and concern for medication reaction. She states that she started Bactrim 5 days prior to this visit for MSSA infection and a finger that was recently injured in a work incident and required surgery. Started feeling generally unwell 4 days prior to this, rash started yesterday, 03/01 and into today, she developed a cough and rash is worsening, general malaise, but otherwise no shortness of breath, vomiting, diarrhea, tongue or throat swelling, mucous membrane bleeding, easy bruising, bleeding gums, vision changes, dysphonia, dysphagia, or any other concerns. History was obtained via conversation with patient. On arrival, patient hemodynamically stable, alert, oriented x4, appropriate, GCS 15, moving all extremities spontaneously, pupils equal and reactive to light. Full physical exam performed and significant for Macular rash on the face, trunk, upper and lower extremities sparing palms and soles. Blanches. Negative for desquamation, palm or sole involvement, Nikolsky sign, mucous membrane involvement, ocular involvement, purpura, lymphadenopathy, or other abnormalities. Patient appears uncomfortable. No evidence of lymphadenopathy. Lungs are clear anterior and posterior bilaterally, no evidence of wheezes. She is tachycardic but normotensive. Differential includes anaphylaxis, staph scalded skin syndrome, SJS/TEN, sepsis, dress, among others. Patient placed on continuous cardiac monitoring and continuous pulse ox with initial blood pressure 119/73, heart rate 122, saturation 100% on room air. Patient was given 0.3 mg IM epinephrine, 10 mg IV Decadron, IV Pepcid, 50 mg IV Benadryl, IV fluids for symptomatic management and correction of underlying abnormalities. Workup independently interpreted and significant for mild leukopenia with significant relative eosinophilia. Patient's VBG nonactionable. Chemistry with mild elevation in creatinine and AST, negative, urinalysis negative. On reevaluation, patient states she is feeling much better, but still has a rash. Facial swelling is much better. Given patient presentation, workup, history, this most likely represents allergic reaction versus dress syndrome. I feel more likely related to dress given mild elevation in creatinine and AST. Patient to be prescribed steroids for home-going. Close return precautions were discussed. Because patient at baseline without signs or symptoms of clinical decompensation, deemed appropriate for discharge. Results were relayed to patient who voiced understanding and were agreeable to outpatient management and follow up. I discussed my clinical impression with patient and answered all questions. At this time, the evidence for any other entities in the differential is insufficient to warrant any further testing or ED observation. This was explained as well. Advisory was given that persistent or worsening symptoms require further evaluation. I confirmed the understanding of this discussion. [employer] disclaimer Much of this encounter note is an electronic automotive warranty administrator spoken language to printed text. Electronic automotive warranty administrator of the spoken language may permit errors. Although I have reviewed the note, some errors may still exist. Critical Care Critical Care Time Critical Care Time: No
[2025-03-02 15:58] LABS: Activated Partial Thrombo Time 30.8 seconds (22.8-30.6)
[2025-03-02 16:00] VITALS: BP 106/61; PULSE 84; RESP 23; O2SAT 100
[2025-03-02 16:00] LABS: Bacteria,Urine 4+ /lpf; Mucus,Urine 1+ /lpf; Squamous Epithelial Cell,Urine 20-50 #/hpf (0-5)
[2025-03-02] MEDS: LACTATED RINGERS 1000ML 1,000 ML 999 ML IV (16:01)
[2025-03-02 16:17] LABS: HCG,Quantitative < 2 mIU/ml (0-5.42); Troponin I < 0.01 ng/ml (0.00-0.034)
[2025-03-02 16:30] VITALS: BP 92/64; PULSE 79; RESP 21; O2SAT 100
[2025-03-02 16:52] LABS: HIV Combo NEGATIVE (Negative)
[2025-03-02 17:00] VITALS: BP 105/59; PULSE 79; RESP 18; O2SAT 100
[2025-03-02 17:00] LABS: Hepatitis C Ab Qual. W/ RFX NEGATIVE (Negative)
--- NOTE | 2025-03-02 17:36 | PC.NURSE ---
liability claims adjuster Rigoberto Magallanes [phone] Claim # [id number] pt states this allergic reaction is due to an abx that she was given after a surgery that she was required to have due to workmans comp.
[2025-03-02 17:42] VITALS: BP 121/57; PULSE 91; RESP 13; TEMP 36.7; O2SAT 97
== END 2025-03-02 17:43 | disposition home or self-care (01) ==
PROVIDERS: Emergency Provider Emergency Medicine
DX: R21 Rash and other nonspecific skin eruption (principal); R50.9 Fever, unspecified; D72.10 Eosinophilia, unspecified; R53.81 Other malaise; R00.0 Tachycardia, unspecified; T37.0X5A Adverse effect of sulfonamides, initial encounter; Z11.59 Encounter for screening for other viral diseases; Z11.4 Encounter for screening for human immunodeficiency virus [HIV]
CPT/HCPCS: 80053; 81001; 82803; 84484; 84702; 85025; 85730; 86803; 87086; 87389; 93005; 96361; 96372; 96374; 96375; 99284; J0171; J1100; J1200; J7120